=== PATIENT | female | born 1970 | race Caucasian/White ===

== ENCOUNTER 2020-08-26 15:27 | Outpatient (CLI) | payer OTHER, SELFPAY ==
--- NOTE | ~2020-08-26 | MM_ITS ---
EXAMINATION: MM screening mariana BI w delmy HISTORY: Screening mammogram TECHNIQUE: Craniocaudal and mediolateral oblique 3-D tomosynthesis images were obtained and synthetic 2-D images were generated. CAD analysis was submitted and interpreted. COMPARISON: 05/07/2014, 04/30/2014 BREAST PARENCHYMAL COMPOSITION: The breasts are heterogeneously dense, which may obscure small masses . FINDINGS: There are changes of interval reduction mammoplasty. There is no evidence of suspicious mas s, calcification, or architectural distortion to suggest malignancy in either breast. There has been no suspicious interval change. IMPRESSION: 1. No mammographic evidence of malignancy. 2. Recommend routine screening mammography in one year. BI-RADS Category 1: Negative Reviewed, dictated and finalized at location A.
== END 2020-08-26 15:28 | disposition home or self-care (01) ==
LOC: ANHIMG 15:29
PROVIDERS: PCP Family Medicine; Visit Provider Obstetrics & Gynecology
DX: Z12.31 Encounter for screening mammogram for malignant neoplasm of breast (principal)
CPT/HCPCS: 77063; 77067

== ENCOUNTER 2024-11-11 07:38 | Day surgery (SDC) | payer OTHER, SELFPAY ==
--- OUTSIDE RECORDS SUMMARY | 2003-06-24 19:00 | XMS_ITS | Continuity of Care Document ---
Author Organization [facility] Address [address] [place] [address] Phone Care Team Providers Care Textile Examiner Name Role Phone [facility] Unavailable Unavail able Jennifer Cole Unavailable Unavailable Advance Directives Directive Yes / No Effective Date File Name No Information Encounters Encounter Description Practice Location Reason(s) For Visit Diagnoses Date Provider Providers Copied on Encounter [facility], [address], [place], [place], [id number], [place] tel:[phone] [facility] No Information [phone] [facility] [address], [facility] [address], [place], [place], [id number] , [place]. tel:[phone] Consulting Provider: Jennifer Cole, [address] [place], [address]. tel:[phone] Family History Family Member Type Diagnosis Age At Onset No Information Payers Payer name Insurance type Covered republican ID Authoriza tion(s) No Information Social History Type Description Quantity Date Captured Comments Sex Female Smoking Status No Information Chief Complaint And Reason For Visit No Information Reason For Referral Reason For Referral No Information History Of Present Illness Encounter Date Complaint History Of Prese nt Illness No Information Functional Status Date Functional Assessmen t No Information Instructions Date Instruction Additional Infor mation No Information Assessments Type Assessment Date No Information Patient Care Teams Name Effective Dates (start - stop) Status Members No Information
[2024-10-07 11:45] VITALS: BMI 36.3
[2024-11-11 09:52] VITALS: BMI 35.8
[2024-11-11 09:53] VITALS: BP 124/73; PULSE 79; RESP 18; TEMP 36.4; O2SAT 96
[2024-11-11] MEDS: LACTATED RINGERS 1,000 ML 150 ML IV CONT (10:15)
--- NOTE | 2024-11-11 10:24 | PM.IMHP ---
H&P: HPI History of Present Illness Date/Time: 11/11/24 10:24 Chief Complaint: Screening colonoscopy Narrative: This is the patient's first colonoscopy. There are no GI symptoms and there is no family history of colorectal cancer. Review of Systems Review of Systems: All systems reviewed & are unremarkable except as noted in HPI and below PMFSH Past Medical History Medical History Cholecystectomy planned GERD (gastroesophageal reflux disease) Gallbladder disorder Diabetes Anxiety Surgical History Surgical History H/O tubal ligation Family History Family History Mother Hypertension Other No family history of cardiovascular disease No family history of diabetes mellitus No family history of malignant neoplasm Social History Social History (Updated 10/03/24 @ 14:55 by Arelis Page CMA) Smoking status: Never smoker Alcohol intake: never Substance use: never Substance use type: does not use Do You Feel Safe in your Home?: Yes Meds Home Medications and Allergies Home Medications ?Medication ?Instructions ?Recorded ?Confirmed ?Type cholecalciferol (vitamin D3) 50 50 mcg PO DAILY 10/13/20 11/11/24 History mcg (2,000 unit) capsule ergocalciferol (vitamin D2) 1,250 1,250 mcg PO WEEKLY 10/13/20 11/11/24 History mcg (50,000 unit) capsule (Vitamin D2) alprazolam 0.25 mg tablet (Xanax) 0.25 mg PO QHS PRN anxiety 10/03/24 11/11/24 History clobetasol topical PRN PRN itching 10/03/24 10/03/24 History Humulin R Regular U-100 Insuln 100 See Rx Instructions subcut 10/17/24 11/11/24 Rx unit/mL injection solution .COMPLEX #10 mL (insulin regular human) Lantus Solostar U-100 Insulin 100 See Rx Instructions subcut QPM #15 10/31/24 11/01/24 Rx unit/mL (3 mL) subcutaneous pen mL (insulin glargine) insulin NPH isoph U-100 human 100 50 unit subcut BID 11/01/24 11/11/24 History unit/mL (3 mL) subcutaneous pen (Humulin N NPH U-100 Insulin KwikPen) vit A 7,160 unit-vit C 113 mg-vit 4 tablet PO ONCE 11/01/24 11/11/24 History E-zinc [id number] 1 mg tablet ([facility]) Allergies Allergy/AdvReac Type Severity Reaction Status Date / Time No Known Allergies Allergy Verified 11/11/24 09:41 Vital Signs Vital Signs - 24 hr 11/11/24 09:53 Temperature 97.5 F L Pulse Rate 79 Respiratory Rate 18 Blood Pressure 124/73 Pulse Oximetry 96 Oxygen Delivery Room Air Exam Const: General: cooperative and healthy appearing Resp: Effort & Inspection: normal respiratory effort and able to speak in complete sentences Auscultation: clear to auscultation bilaterally Cardio: Rate: regular rate Rhythm: regular rhythm GI: Inspection: normal to inspection GI Palp: No No hepatosplenomegaly present Auscultation: normal bowel sounds Rectal Exam: deferred Skin: General skin exam: normal color Psych: Appearance: grossly normal Mental Status: mental status grossly normal Assessment and Plan Assessment and plan (1) Screening for colon cancer: Code(s): Z12.11 - Encounter for screening for malignant neoplasm of colon Status: Acute Assessment and Plan: The patient is deemed a good candidate for the procedure. Consent signed. Will proceed.
--- OUTSIDE RECORDS SUMMARY | 2024-11-11 10:25 | XMS_ITS | Clinical Summary ---
Author Organization [facility] Address [address] [place] [address] Care Team Providers Care Television Picture Tube Rebuilder Name Role Phone Unavailable Primary Care Provider Unavailabl e Social History Tobacco Use Types Packs/Day Years Used Date Smoking Tobacco: Never Assessed Comments Unknown Sex and Gender Information Value Date Recorded Sex Assigned at Not on file Legal Sex Female 5:50 PM CDT Gender Identity Not on file Sexual Orientation Not on file Plan of Treatment Health Maintenance Due Date Last Done Comments Cervical Cancer Screening Pa p Smear (Age 30 to 64) Every 3 Years 1970 Colorectal Cancer Screening Colonoscopy (10 Years) 1970 Annual Physical 1973 Hepatitis C 1988 DTaP, Tdap and Td Vaccines ( 1 - Tdap) 1989 Hepatitis B Vaccines (1 of 3 - 19+ 3-dose series) 1989 Cervical Cancer Screening Pa p with HPV Testing (Age 30 to 64) Every 5 Years 2000 Cervical Cancer Screening with HPV 2000 Mammogram Screening 2010 Pneumococcal Vaccine: 50+ Ye ars (1 of 1 - PCV) 2020 Zoster Vaccines (1 of 2) 2020 COVID-19 Vaccine ( - 2023-2 5 season) 2024 Meningococcal B Vaccine Aged Out No l onger eligible based on patient's age to complete this topic Meningococcal Vaccine Aged Out No baljeet amos eligible based on patient's age to complete this topic RSV Immunizations Under 20 Months Aged Out No longer eligible based on patient's age to complete this topic
--- NOTE | 2024-11-11 10:30 | WPDANESEPPF ---
Anes - Initial Pre Proc Eval Procedure: Operation Date: 11/11/24 09:30 Proposed Procedures p Screening Colonoscopy - Andrew Beltran MD Date/Time: 11/11/24 10:30 Surgeon: Andrew Beltran MD Pre Op Diagnosis: Encounter for screening for malignant neoplasm of Patient Data Age: 53 Gender: F Height: 1.57 m Weight: 88.9 kg Last Vital Signs Temp 97.5 F L 11/11/24 09:53 Pulse 79 11/11/24 09:53 Resp 18 11/11/24 09:53 BP 124/73 11/11/24 09:53 Pulse Ox 96 11/11/24 09:53 O2 Del Method Room Air 11/11/24 09:53 Allergies Allergy/AdvReac Type Severity Reaction Status Date / Time No Known Allergies Allergy Verified 11/11/24 09:41 Home Medications ?Medication ?Instructions ?Recorded ?Confirmed ?Type cholecalciferol (vitamin D3) 50 50 mcg PO DAILY 10/13/20 11/11/24 History mcg (2,000 unit) capsule ergocalciferol (vitamin D2) 1,250 1,250 mcg PO WEEKLY 10/13/20 11/11/24 History mcg (50,000 unit) capsule (Vitamin D2) alprazolam 0.25 mg tablet (Xanax) 0.25 mg PO QHS PRN anxiety 10/03/24 11/11/24 History clobetasol topical PRN PRN itching 10/03/24 10/03/24 History Humulin R Regular U-100 Insuln 100 See Rx Instructions subcut 10/17/24 11/11/24 Rx unit/mL injection solution .COMPLEX #10 mL (insulin regular human) Lantus Solostar U-100 Insulin 100 See Rx Instructions subcut QPM #15 10/31/24 11/01/24 Rx unit/mL (3 mL) subcutaneous pen mL (insulin glargine) insulin NPH isoph U-100 human 100 50 unit subcut BID 11/01/24 11/11/24 History unit/mL (3 mL) subcutaneous pen (Humulin N NPH U-100 Insulin KwikPen) vit A 7,160 unit-vit C 113 mg-vit 4 tablet PO ONCE 11/01/24 11/11/24 History E-zinc [id number]-[id number] 1 mg tablet ([facility]) Laboratory Tests 11/11/24 10:06 POC Capillary Glucose 206 H mg/dl (65-105) Patient hx anesthesia problems: none Family hx anesthesia problems: none Results Review: All pre-operative results and documents have been reviewed as part of the pre-operative evaluation. [facility] Past Medical History Medical History Cholecystectomy planned GERD (gastroesophageal reflux disease) Gallbladder disorder Diabetes Anxiety Surgical History Surgical History H/O tubal ligation Family History Family History Mother Hypertension Other No family history of cardiovascular disease No family history of diabetes mellitus No family history of malignant neoplasm Social History Social History (Updated 10/03/24 @ 14:55 by Arelis Page CMA) Smoking status: Never smoker Alcohol intake: never Substance use: never Substance use type: does not use Do You Feel Safe in your Home?: Yes Anes - Eval Final PreProcedure Day of Procedure 11/11/24 10:30 Heart: regular rate and rhythm Lungs: clear to auscultation Airway: Mallampati scale class II Neurological: alert and oriented Last oral intake: >/= 8 hours ASA classification: II Anesthetic plan: proceed Anesthesia type and monitoring: monitored anesthesia care Results Review: All pre-operative results and documents have been reviewed as part of the pre-operative evaluation. Informed Consent: The patient's anesthetic plan and its attendant risks and benefits were discussed with the patient/family/POA. Questions were solicited and answers provided to the satisfaction of the patient/family/POA.
--- NOTE | 2024-11-11 10:31 | WPDANESPN ---
Anes - Prog Note Post-Op Date/Time: 11/11/24 10:31 Vital Signs: Last Vital Signs Temp 97.5 F L 11/11/24 09:53 Pulse 79 11/11/24 09:53 Resp 18 11/11/24 09:53 BP 124/73 11/11/24 09:53 Pulse Ox 96 11/11/24 09:53 O2 Del Method Room Air 11/11/24 09:53 Pain Score (VAS): no 11/11/24 10:06 POC Capillary Glucose 206 H Patient Feedback: Patient satisfied with anesthetic care.
--- NOTE | 2024-11-11 10:55 | SUR.PREOP ---
1030; DR HENRY NOTIFIED OF PT'S ACCUCHECK OF 206
[2024-11-11 11:03] VITALS: BP 112/59; PULSE 75; RESP 14; O2SAT 96
[2024-11-11 11:13] VITALS: BP 111/70; PULSE 72; RESP 14; O2SAT 98
[2024-11-11 11:23] VITALS: BP 114/70; PULSE 70; RESP 14; O2SAT 98
== END 2024-11-11 11:31 | disposition home or self-care (01) ==
PROVIDERS: PCP Family Medicine; Referring Provider Student in an Organized Health Care Education/Training Program; Visit Provider Internal Medicine Gastroenterology
PROC: 0DJD8ZZ Inspection of Lower Intestinal Tract, Via Natural or Artificial Opening Endoscopic (ICD-10-PCS; CPT 45378; principal; 2024-11-11 09:30)
DX: Z12.11 Encounter for screening for malignant neoplasm of colon (principal); K57.30 Diverticulosis of large intestine without perforation or abscess without bleeding; K64.8 Other hemorrhoids
CPT/HCPCS: 45378